=== PATIENT | female | born 1965 | race Caucasian/White ===

== ENCOUNTER → 2016-11-04 | Outpatient (CLI) | payer BC ==
--- NOTE | 2016-11-04 16:37 | MAMMOGRAPHY REPORT ---
UNILATERAL LEFT DIGITAL DIAGNOSTIC MAMMOGRAM TOMOSYNTHESIS AND TARGETED LEFT ULTRASOUND: 11/04/2016 CLINICAL HISTORY: 51-year-old woman called back from screening mammography for a left medial asymmet ry and left upper outer quadrant microcalcifications. Family history of breast cancer = mother. TECHNIQUE: Spot magnification left CC and ML views were performed in the upper outer quadrant. A s pot compression left CC 2-D digital and tomosynthesis image was performed in the medial breast. COMPARISON: Comparison is made to exams dated: 10/24/2016 mammogram, 10/20/2014 mammogram, 10/23/20 15 mammogram, 04/26/2013 mammogram, 10/20/2012 mammogram, and 09/17/2011 mammogram - [facility]. BREAST COMPOSITION: The tissue of the left breast is heterogeneously dense, which may obscure small masses. FINDINGS: There is persistence of a 5 x 9 mm ovoid asymmetry in the medial far posterior left breas t on the spot compression CC tomosynthesis images. No obvious associated architectural distortion o r clustered microcalcification. Further evaluation with ultrasound was performed. There are no foc al areas of architectural distortion seen within the left breast. The spot magnification views of the left breast demonstrate regional punctate and amorphous microcal cifications throughout the upper outer quadrant measuring approximately 6 x 3 x 4 cm. When comparin g to prior available mammograms, they are not definitively seen, therefore are considered indetermin ate. Definitive characterization with a stereotactic guided biopsy is recommended. Real time high-resolution sonographic evaluation was performed throughout the medial left breast. I n the 6:00 axis, 1 cm from the nipple, there is an oval parallel circumscribed anechoic benign simpl e cyst measuring 3.5 x 2.6 x 4.0 mm. No other discrete solid or cystic mass is seen throughout the medial left breast to correlate with the mammographic asymmetry. IMPRESSION: ACR BI-RADS CATEGORY 4B: INTERMEDIATE SUSPICION FOR MALIGNANCY, TARGETED ULTRASOUND ACR BI-RADS CATEGORY 4B: INTERMEDIATE SUSPICION FOR MALIGNANCY 1. There are new punctate and amorphous regional microcalcifications in left upper outer quadrant t hat are indeterminate. Definitive characterization with a left breast stereotactic guided biopsy is recommended. 2. There is a persistent 5 x 9 mm nodular asymmetry in the medial posterior left breast, and no def inite sonographic correlate. This finding remains indeterminate and further recommendations as to f ollow-up will be made based on pathology results from the left breast stereotactic biopsy. These results and recommendations were discussed with the patient at the time of the exam. She tenta tively scheduled the left breast stereotactic biopsy prior to leaving our department. Approximately 10% of breast cancers are not detected with mammography. A negative mammographic repor t should not delay biopsy if a clinically suggestive mass is present. Cheri Velásquez M.D. ay/:11/04/2016 13:43:29 Circular Knife Cutter Machine: Helga Pollock RT(R)(M), [facility] letter sent: Abnormal 4/5 BI-RADS Code: ACR BI-RADS Category 4B: Intermediate Suspicion For Malignancy Ultrasound BI-RADS: AC R BI-RADS Category 4B: Intermediate Suspicion For Malignancy
== END | disposition home or self-care (01) ==
LOC: C.MAMM 08:24
PROVIDERS: ATTEND Nurse Practitioner Adult Health
DX: N63 Unspecified lump in breast (principal); R92.0 Mammographic microcalcification found on diagnostic imaging of breast

== ENCOUNTER → 2016-11-11 | Outpatient (CLI) | payer BC ==
--- NOTE | 2016-11-11 13:41 | Discharge Instructions ---
Discharge Instructions Procedure Procedure Date: Nov 11, 2016. Reason for visit: Left Calcifications. Discharge Discharge Date: Nov 11, 2016. Discharge Diagnosis: post left breast stereotactic guided biopsy Instructions Activity Recommendations: Additional Limitations (see below) Return to School/Work: no limitations Recommended Home Diet: No Limitations Provider Instructions: ACTIVITY RECOMMENDATIONS: * No lifting, pushing, pulling or exercising the affected side for three days. RETURN TO SCHOOL/WORK: * You may return to work/school after the procedure, but do not perform any strenuous activities for 24 to 48 hours. MEDICATIONS: * Tylenol (two 325 mg) every four to six hours if needed for mild pain (if not allergic to Tylenol). DIET: * Resume previous diet. SPECIAL CARE INSTRUCTIONS: * Keep biopsy site dry for 24 hours. May shower after 24 hours, but do not soak (bathe) incision. * May remove Tegaderm (plastic patch) tomorrow AFTER showering. * Leave the steri-strips on for one week. Allow the steri-strips to fall off by themselves. If not off after one week, you may remove them. You may place a Bandaid crosswise over the strips, if desired. * Apply ice 10 minutes on and 10 minutes off as needed. * Wear a bra at bedtime to sleep more comfortably for 2-3 days. * Your referring physician should have the results after approximately 5 to 7 business days. * Call for unusual bleeding, fever, drainage, etc or if you have any questions call [phone] during normal business hours or after hours call Dr Velásquez, . FOLLOW UP VISIT: Follow-up with Referring Physician as scheduled. Allergies Coded Allergies: No Known Allergies (Verified Allergy, Unknown, 12/08/02) Uncoded Allergies: ANIMALS, MOLDS, YEAST (Allergy, Unknown, 12/08/02) N (Allergy, Unknown, 12/08/02) NKDA (Allergy, Unknown, 12/08/02) NKFA (Allergy, Unknown, 12/08/02) NO (Allergy, Unknown, 12/08/02) Dang Nair Recommendations: Call your doctor if: * Temperature above 101 degrees * Pain not relieved by pain medicine ordered * There is increased drainage or redness from any incision * You have any unanswered questions or concerns. Your Doctors Instructions noted above were prepared by provider Cheri Velásquez. Patient Signature Section: Patient Instructions Signature Page Susan Dukes Patient (or Guardian) Signature/Date: I have read and understand the instructions given to me by my caregivers. Caregiver/RN/Doctor Signature/Date: The above-named patient and/or guardian has received patient instructions on this date. + Original Patient Signature Page (only) stays with chart. Please make copy for patient.
--- NOTE | 2016-11-11 14:20 | MAMMOGRAPHY REPORT ---
THIS REPORT HAS BEEN AMENDED. STEREOTACTIC GUIDED BIOPSY LEFT BREAST: 11/11/2016 CLINICAL HISTORY: Regional punctate microcalcifications in the left upper outer quadrant. Patient p resents for stereotactic biopsy. COMPARISON: Comparison is made to exams dated: 11/04/2016 mammogram, 11/04/2016 ultrasound, 6 mammogram, 10/23/2015 mammogram, and 10/17/2013 mammogram - [facility]. PATIENT CONSENT: After explaining the risks, benefits and alternatives of the procedure to the patie nt, informed consent was obtained both verbally and in writing. Specific risks include: Bleeding, i nfection, puncture of adjacent structure, nontarget biopsy, sampling error and medication reaction. PROCEDURE DESCRIPTION: A time-out was performed and the left breast was confirmed as the site of bio psy. The patient was placed prone on the stereotactic biopsy table and the breast was placed in late ral compression. The microcalcifications were not clearly identified therefore positioning was rey ged to CC from above direction. A events solutions consultant image was obtained that demonstrated the clustered microcal cifications in question. They are amenable to sterotactic biopsy. Then +15 and -15 stereo pair im ages were obtained. The calcifications were targeted utilizing the coordinates obtained by the compu ter. The skin was prepped with Betadine. 1% Lidocaine with and without epinipherine was administere d as local anesthesia. A small skin incision was made. Through the incision, the needle was inserte d to the depth determined by the computer. 12 samples were obtained using a Nolioiva 9-gauge vacu um-assisted biopsy device. The specimen radiograph demonstrated several truck sales representative microcalcific ations, therefore, a metallic marker was placed at the biopsy site. There was no immediate complicat ion. Hemostasis was achieved after several minutes of manual compression. The samples were sent to pathology in an appropriately labeled container. The were not out given that 1-2 microcal cifications were present within nearly all of the specimen. Postprocedure CC and ML views of the left breast were obtained. There is a new demonstrate metallic biopsy marker and no significant hematoma in the upper outer posterior left breast, at the site of the biopsied regional microcalcifications. IMPRESSION: STEREOTACTIC GUIDED BIOPSY Status post left breast stereotactic guided biopsy of regional microcalcifications in the upper oute r quadrant, with biopsy marker placed at the site. Further recommendations regarding the asymmetry in the far posterior and medial left breast will be made based on pathology results. The patient will receive notification of the biopsy results from her referring physician. Cheri Velásquez M.D. ay/:11/11/2016 14:00:10 Attending Technologist: Gali Martinez RT(R)(M), [facility] Youth Corrections Officer: Octavia QUIÑONES(R)(M), [facility] AMENDMENT: 11/12/2016 Cheri Velásquez M.D. Pathology results from the stereotactic guided biopsy of segmental microcalcifications in left upper outer quadrant yielded lobular carcinoma in situ. Adenosis with focal columnar cell change. Micro -calcifications present. In the comment section of the report, the biopsy show multiple lobules inv olved by a monomorphic population of cells. While most of the lobules do not show significant expan grant one lobule clearly does. While some of these lobules could be interpreted as atypical lobular hyperplasia, the large number of lobules involved in the presence of at least some expansion in my o zhou warrant a diagnosis of LCIS. No invasive carcinoma is identified. The pathology results of LCIS warrant surgical consultation for surgical excisional biopsy. However , another finding of an asymmetry in the far posterior medial left breast was not identified on ultr asound and remains indeterminate. Therefore, prior to surgical excision would recommend a contrast- enhanced breast MRI to exclude the possibility of any suspicious enhancement or a suspicious enhanci ng mass in that location or elsewhere in the breasts, now given the biopsy proven atypia and strong family history of breast cancer.
--- NOTE | 2016-11-11 14:22 | MAMMOGRAPHY REPORT ---
UNILATERAL LEFT DIGITAL DIAGNOSTIC MAMMOGRAM: 11/11/2016 CLINICAL HISTORY: Status post stereotactic guided biopsy of regional punctate microcalcifications in the left upper outer quadrant. Please refer to the report from left breast stereotactic guided biopsy performed at the same time fo r full detail. IMPRESSION: POST PROCEDURE IMAGING FOR MARKER PLACEMENT Please refer to the report from left breast stereotactic guided biopsy performed at the same time fo r full detail. Approximately 10% of breast cancers are not detected with mammography. A negative mammographic repor t should not delay biopsy if a clinically suggestive mass is present. Cheri Velásquez M.D. ay/:11/11/2016 13:44:19 Attending Technologist: Gali Martinez RT(R)(M), [facility] Cigar Inspector: Octavia Mahajan RT(R)(M), [facility] BI-RADS Code: Post Procedure Imaging For Marker Placement
== END | disposition home or self-care (01) ==
LOC: C.MAMM 12:39
PROVIDERS: ATTEND Nurse Practitioner Adult Health
DX: D05.02 Lobular carcinoma in situ of left breast (principal); N60.22 Fibroadenosis of left breast; R92.0 Mammographic microcalcification found on diagnostic imaging of breast

== ENCOUNTER → 2016-12-08 | Outpatient (CLI) | payer BC ==
[~2016-12-08] MED LIST: GADAVIST IV PRN
--- NOTE | 2016-12-09 13:24 | MAMMOGRAPHY REPORT ---
BREAST MRI OF BOTH BREASTS : 12/08/2016 CLINICAL HISTORY: Recent stereotactic biopsy of left breast calcifications October 2016, with pathol ogy yielding LCIS. History of mother with breast cancer. COMPARISON: Comparison is made to exams dated: 11/11/2016 mammogram, 11/04/2016 mammogram, 10/24/2016 mammogram, 10/23/2015 mammogram, 10/20/2014 mammogram, and 10/17/2013 mammogram - [facility]. Technique: The patient was placed prone in a dedicated breast imaging coil. Precontrast axial T1-we ighted, axial T2-weighted fat saturation, and axial T1-weighted fat saturation images were obtained. After the administration of 6 mL of Gadavist IV contrast, sequential T1-weighted fat saturation im ages were obtained. Subtraction images were obtained of the dynamic contrast enhanced sequences, an d 3-D reformations were performed. The AudioTrip software was used for kinetic analysis. Findings: There is marked background parenchymal enhancement involving bilateral breasts, which reduces the se nsitivity of the exam. Clip artifact is seen within the left upper outer quadrant at the site of st ereotactic biopsy which yielded LCIS. No abnormal enhancement is seen at the biopsy site. Multiple small circumscribed T2 hyperintense, nonenhancing masses are seen bilaterally, consistent with cysts . There is a focal 10 x 13 mm area of mixed washout/plateau kinetics within the left upper inner qu adrant posteriorly at approximately 11:00, with the remainder of both breasts demonstrating predomin antly scattered benign type persistent kinetics. No discrete mass is seen on the corresponding post contrast images (series [id number] images 52-3). While this could represent normal background parenchyma l enhancement, it is indeterminate for malignancy and MRI guided biopsy is recommended for further e valuation. The remainder of both breasts demonstrate no suspicious enhancing masses or areas of non -mass enhancement. There is no evidence of axillary adenopathy. The chest wall structures are negative. Extramammary soft tissues are unremarkable. IMPRESSION: ACR BI-RADS CATEGORY 4: SUSPICIOUS 1. Clip artifact in the left upper outer quadrant at the site of biopsy-proven LCIS, with no focal abnormal enhancement at the biopsy site. Surgical excision is recommended. 2. Focal 1.3 cm area of washout kinetics in the left upper inner quadrant posteriorly, with no tamica esponding discrete mass seen on the postcontrast images. While this could represent normal backgrou nd parenchymal enhancement, it is indeterminant for a lobular malignancy and MRI guided core needle biopsy is recommended for further evaluation. 3. No MRI evidence of malignancy in the right breast. Krysta Villa M.D. ah/:12/09/2016 07:32:27 System Technologist: train crew member, [facility] BI-RADS Code: ACR BI-RADS Category 4: Suspicious
== END | disposition home or self-care (01) ==
LOC: C.MRI 11:06
PROVIDERS: ATTEND Surgery
DX: D05.02 Lobular carcinoma in situ of left breast (principal); Z80.3 Family history of malignant neoplasm of breast; R92.8 Other abnormal and inconclusive findings on diagnostic imaging of breast

== ENCOUNTER → 2016-12-31 | Outpatient (CLI) | payer BC ==
[~2016-12-31] MED LIST changes: +LIDO/EPINEPHRINE/SOD BICARB 20 ML VIAL INFIL ONE; +XYLOCAINE 1%/SOD BICARB 20 ML VIAL INFIL ONE
--- NOTE | 2016-12-31 11:21 | Discharge Instructions ---
Discharge Instructions Procedure Procedure Date: Dec 31, 2016. Reason for visit: Lt Enhancement. Discharge Discharge Date: Dec 31, 2016. Discharge Diagnosis: status post breast biopsy Instructions Activity Recommendations: Additional Limitations (see below) Return to School/Work: no limitations Recommended Home Diet: No Limitations Provider Instructions: ACTIVITY RECOMMENDATIONS: * No lifting, pushing, pulling or exercising the affected side for three days. RETURN TO SCHOOL/WORK: * You may return to work/school after the procedure, but do not perform any strenuous activities for 24 to 48 hours. MEDICATIONS: * Tylenol (two 325 mg) every four to six hours if needed for mild pain (if not allergic to Tylenol). DIET: * Resume previous diet. SPECIAL CARE INSTRUCTIONS: * Keep biopsy site dry for 24 hours. May shower after 24 hours, but do not soak (bathe) incision. * May remove Tegaderm (plastic patch) tomorrow AFTER showering. * Leave the steri-strips on for one week. Allow the steri-strips to fall off by themselves. If not off after one week, you may remove them. You may place a Bandaid crosswise over the strips, if desired. * Apply ice 10 minutes on and 10 minutes off as needed. * Wear a bra at bedtime to sleep more comfortably for 2-3 days. * Your referring physician should have the results after approximately 5 to 7 business days. * Call for unusual bleeding, fever, drainage, etc or if you have any questions call during normal business hours or after hours call Dr Villa, [phone]. FOLLOW UP VISIT: Follow-up with Referring Physician as scheduled. Allergies Coded Allergies: No Known Allergies (Verified , 12/08/02) Uncoded Allergies: ANIMALS, MOLDS, YEAST (Allergy, Unknown, 12/08/02) NKDA (Allergy, Unknown, 12/08/02) Dang Nair Recommendations: Call your doctor if: * Temperature above 101 degrees * Pain not relieved by pain medicine ordered * There is increased drainage or redness from any incision * You have any unanswered questions or concerns. Your Doctors Instructions noted above were prepared by provider Krysta Villa. Patient Signature Section: Patient Instructions Signature Page Susan Dukes Patient (or Guardian) Signature/Date: I have read and understand the instructions given to me by my caregivers. Caregiver/RN/Doctor Signature/Date: The above-named patient and/or guardian has received patient instructions on this date. + Original Patient Signature Page (only) stays with chart. Please make copy for patient.
--- NOTE | 2016-12-31 12:37 | MAMMOGRAPHY REPORT ---
THIS REPORT HAS BEEN AMENDED. MRI BIOPSY LEFT BREAST: 12/31/2016 CLINICAL HISTORY: Area of abnormal kinetics in the left upper inner quadrant on recent breast MRI. COMPARISON: Comparison is made to exams dated: 11/11/2016 mammogram, 11/04/2016 mammogram, 10/23/2015 mammogram, 10/24/2016 mammogram, 10/20/2014 mammogram, and 10/17/2013 mammogram - [facility]. Technique: Written informed consent was obtained from the patient after discussion of the procedure as well as risks of MRI guided core needle biopsy. A preprocedural timeout was performed prior to s tarting the procedure. The patient was placed prone on a 1.5 Sanjuana MR scanner. The medial aspect of the left breast was cl eansed with ChloraPrep. The left breast was positioned in a dedicated breast coil and MRI guidance grid device. After localizing sequences were obtained, pre-and postcontrast axial sequences were performed which confirm the persistence of the area of enhancement with abnormal kinetics in the left upper inner qu adrant posteriorly. Gadavist IV contrast was administered. Using the images, targeting was perform ed using the Tagbrand software. The skin was prepped with Betadine through the grid and after local anesthesia was achieved, an intr oducer sheath and localizing obturator were placed into the site using a medial approach. The locat ion of the obturator sheath was confirmed with additional images. Subsequently, multiple samples were obtained from the site using a Vocation 9-gauge vacuum-assisted cor e biopsy device. Through the introducer sheath, a marker clip was placed. Postprocedural images de monstrate postbiopsy changes in the expected location of the enhancement. Direct pressure was held at the biopsy site until hemostasis was achieved. The patient tolerated the procedure without immediate complication. Mammography was obtained at the breast center after completion of the biopsy to confirm marker clip placement. Please see the sepa rate dictation of the exam for further details. The specimens were sent to pathology for analysis. Wound care instructions were given to the patient. IMPRESSION: MRI BIOPSY MRI guided core needle biopsy of the area of enhancement with associated abnormal kinetics in the le ft upper inner quadrant, with clip placement. The patient will receive pathology results from her [facility] provider. Krysta Villa M.D. /:12/31/2016 11:28:53 Excelsior Machine Operator: packager head, [facility] AMENDMENT: 01/07/2017 Krysta Villa M.D. The pathology from MRI guided biopsy of the left breast was reviewed on 01/07/2017. The Pathology sh ows a small focus of lobular carcinoma in situ, flat epithelial atypia, and atypical apocrine metapl jennifer. Given the presence of atypia and LCIS, surgical excision is recommended.
--- NOTE | 2016-12-31 12:39 | MAMMOGRAPHY REPORT ---
UNILATERAL LEFT DIGITAL DIAGNOSTIC MAMMOGRAM: 12/31/2016 CLINICAL HISTORY: Status post MRI guided biopsy of the left breast. TECHNIQUE: Postprocedural left CC and ML views were obtained. COMPARISON: Comparison is made to exams dated: 11/11/2016 mammogram, 11/04/2016 mammogram, 11/04/2016 ultrasound, 10/24/2016 mammogram, 10/23/2015 mammogram, and 12/31/2016 MRI biopsy - [facility]. BREAST COMPOSITION: The tissue of the left breast is heterogeneously dense, which may obscure small masses. FINDINGS: A new biopsy marker clip is seen in the left upper outer quadrant posteriorly at the expe cted location of the area of biopsied enhancement on MRI. No significant postbiopsy hematoma is see n. IMPRESSION: POST PROCEDURE IMAGING FOR MARKER PLACEMENT New biopsy marker clip status post MRI guided biopsy of the area of enhancement in the left upper in ner quadrant. Pathology results are pending. Approximately 10% of breast cancers are not detected with mammography. A negative mammographic repor t should not delay biopsy if a clinically suggestive mass is present. Krysta Villa M.D. ah/:12/31/2016 11:43:42 Dope Maintenance Worker: Gali QUIÑONES(R)(M), [facility] BI-RADS Code: Post Procedure Imaging For Marker Placement
== END | disposition home or self-care (01) ==
LOC: C.MRI 09:38
PROVIDERS: ATTEND Surgery
DX: D05.02 Lobular carcinoma in situ of left breast (principal)